=== PATIENT | female | born 1955 | race Two or more races ===

== ENCOUNTER 2024-09-02 01:12 | Emergency (ER) | payer BC, OTHER ==
[~2024-09-02] VITALS: Ht 162.6 cm; Wt 47.8 kg
[2024-09-02 01:56] LABS: Hematocrit 38.8 % (36.0-46.0); Hemoglobin 13.2 g/dL (12.2-16.2); Mean Corpuscular Hemoglobin 31.0 pg (28.0-32.0); Mean Corpuscular Volume 91.1 fL (80.0-100.0)
[2024-09-02] MEDS: ONDANSETRON HCL 4 MG/2 ML VIAL IV ONE (02:01)
[2024-09-02] MEDS: HYDROmorphone HCL 2 MG/ML VL/or syr IV ONE (02:02)
[2024-09-02 02:07] LABS: Alanine Aminotransferase 15 U/L (7-40); Albumin 4.2 g/dL (3.2-4.8); Alkaline Phosphatase 84 U/L (46-116); Anion Gap 9 (5-15); BUN/Creatinine Ratio 17.2 (10.0-20.0); Blood Urea Nitrogen 17 mg/dL (9-23); Calcium 9.7 mg/dL (8.7-10.4); Carbon Dioxide 26 mmol/L (20-31); Chloride 103 mmol/L (98-107); Glucose 102 mg/dL (74-106); Potassium 3.6 mmol/L (3.5-5.1); Sodium 138 mmol/L (136-145); Total Protein 7.7 g/dL (5.7-8.2)
[2024-09-02 02:08] LABS: Bilirubin, Total 0.3 mg/dL (0.2-1.0)
[2024-09-02 02:10] LABS: Lipase 96 U/L (12-53)
[2024-09-02 02:19] LABS: Total Cells Counted 100.0 (100)
--- NOTE | 2024-09-02 02:30 | ED.PDOC ---
GI ASSESSMENT HPI Comments Patient is a pleasant 68-year-old female who was sent to the ED by her primary care provider due to small-bowel obstruction concerns. Patient states she had imaging study done due to what appears to be an intra-abdominal mass. Patient states her provider called her today and said that she had a small bowel ob struction needed to come to the ED for management. Patient arrives in pain, but states that any fever nausea or vomiting. Patient was mildly tachycardic at arrival. Patient states a history of leukemia. Chief Complaint: Abdominal Pain Time Seen by MD: 01:17 Reviewed Notes: Nurses Notes Allergies: Coded Allergies: Penicillins (Verified Allergy, Mild, 09/02/24) severe nausea Information Source: Patient Mode of Arrival: Ambulatory Timing: Days Duration: Since onset Prehospital treatment: None Quality: Cramping Vomitus: None Severity: Moderate Recent: None Recent Hx of: None Past Medical History PAST MEDICAL HISTORY: Denies Past Medical History (Other): Patient states a history of leukemia Surgical History: Denies all surgeries MANAGER CRITICAL CARE History: No Pertinent MANAGER CRITICAL CARE History Family History Family History: Reviewed,noncontributory to illness, No family hx of Cancer, No family hx of DM, No family hx of Heart juan m, No family hx of HTN, No family hx ofKidney juan m, No family hx of Liver juan m, No family hx of Lung juan m, No family hx of Stroke Social History Smoker: Non-Smoker Alcohol: Denies ETOH Use Drugs: Denies Drug Use Lives In: Home Constitutional: denies: chills, diaphoresis, fatigue, fever, malaise, sweats, weakness, others EENTM: denies: blurred vision, double vision, ear bleeding, ear discharge, ear drainage, ear pain, ear ringing, eye pain, eye redness, hearing loss, mouth pain, mouth swelling, nasal discharge, nose bleeding, nose congestion, nose pain, photophobia, tearing, throat pain, throat swelling, voice changes, others Respiratory: denies: cough, hemoptysis, orthopnea, SOB at rest, shortness of breath, SOB with excertion, stridor, wheezing, others Cardiovascular: denies: chest pain, dizzy spells, diaphoresis, Dyspnea on exertion, edema, irregular heart beat, left arm pain, lightheadedness, palpitations, PND, syncope, others Gastrointestinal: reports: abdominal pain; denies: abdomen distended, blood streaked bowels, constipated, diarrhea, dysphagia, difficulty swallowing, he matemesis, melena, nausea, poor appetite, poor fluid intake, rectal bleeding, rectal pain, vomiting, others Genitourinary: denies: abnormal vagina bleeding, burning, dyspareunia, dysuria, flank pain, frequency, hematuria, incontinence, pain, , vagina discharge, urgency, others Neurological: denies: dizziness, fainting, headache, left sided numbness, left sided weakness, numbness, paresthesia, pre-existing deficit, right sided numbness, right sided weakness, seizure, speech problems, tingling, tremors, weakness, others Musculoskeletal: denies: back pain, gout, joint pain, joint swelling, muscle pain, muscle stiffness, neck pain, others Integumetry: denies: bruises, change in color, change in hair/nails, dryness, laceration, lesions, lumps, rash, wounds, others Allergic/Immunocompromised: denies: Difficulty Healing, Frequent Infections, Hives, Itching, others Hematologic/Lymphatic: denies: anemia, blood clots, easy bleeding, easy bruising, swollen glands, others Endocrine: denies: excessive hunger, excessive sweating, excessive thirst, excessive urination, flushing, intolerance to cold, intolerance to heat, unexplained weight gain, unexplained weight loss, others Psychiatric: denies: anxiety, bipolar disorder, depression, hopeless, panic disorder, schizophrenia, sleepless, suicidal, others Physical Exam General Appearance: Moderate Distress (Due to belly pain concerns and anxiety related to abdominal pain.), Normal HEENT: Normal ENT Inspection, Pharynx Normal, TMs Normal Neck: Full Range of Motion, Non-Tender, Normal, Normal Inspection Respiratory: Chest Non-Tender, Lungs Clear, No Accessory Muscle Use, No Resp iratory Distress, Normal Breath Sounds Cardiovascular: No Edema, No JVD, No Murmur, No Gallop, Normal Peripheral Pulses, Regular Rate/Rhythm Breast Exam: Deferred Gastrointestinal: Other (Patient displays a protruding abdominal mass of unknown etiology. Abdomen is mildly to moderately rigid throughout. Patient has a remnant shingles blemish on the left side of her abdomen.) Genitalia: Deferred Pelvic: Deferred Rectal: Deferred Extremities: Normal capillary refill, Non-tender, Other (Patient does display bilateral lower extremity edema.) Neurologic: Alert, No Motor Deficits, Normal Affect, Normal Mood, No Sensory Deficits Cerebellar Function: NOT DONE Reflexes: NOT DONE Skin: Dry, Normal Color, Warm Lymphatic: No Adenopathy Was a procedure done? Was a procedure done?: No GI differential Dx Differential Diagnosis: Bowel Obstruction, Cholangitis, Gastritis/PUD, Gastroenteritis, UTI, Other (Intra-abdominal or neoplasm) X-Ray, Labs, Meds, VS Vital Signs Date Time Temp Pulse Resp B/P (MAP) Pulse Ox O2 Delivery O2 Flow Rate FiO2 09/02/24 02:05 98.3 100 19 129/73 (91) 98.3 09/02/24 02:02 91 19 129/73 09/02/24 01:30 98.6 113 18 112/73 (86) 93 98.6 Lab Test 09/02/24 01:34 Range/Units White Blood Count 14.3 H 4.4-10.8 10^3/uL Red Blood Count 4.26 4.0-5.20 10^6/uL Hemoglobin 13.2 12.2-16.2 g/dL Hematocrit 38.8 36.0-46.0 % Mean Corpuscular Volume 91.1 80.0-100.0 fL Mean Corpuscular Hemoglobin 31.0 28.0-32.0 pg Mean Corpuscular Hemoglobin Concent 34.0 32.0-36.0 g/dL Red Cell Distribution Width 16.0 H 11.8-14.3 % Platelet Count 531 H 140-450 10^3/uL Mean Platelet Volume 7.2 6.9-10.8 fL Neutrophils (%) (Auto) 37.0-80.0 % Lymphocytes (%) (Auto) 10.0-50.0 % Monocytes (%) (Auto) 0.0-12.0 % Basophils (%) (Auto) 0.0-2.0 % Neutrophils # (Auto) 1.6-8.6 10 ^3/uL Lymphocytes # (Auto) 0.4-5.4 10 ^3/uL Monocytes # (Auto) 0-1.3 10 ^3/uL Differential Total Cells Counted 100.0 100 Neutrophils % (Manual) 29 L 37.0-80.0 Band Neutrophils % (Manual) 0 Lymphocytes % (Manual) 52 H 10.0-50.0 Monocytes % (Manual) 7 0-12 Eosinophils % (Manual) 6 0-7 Basophils % (Manual) 0 0.0-2.0 Metamyelocytes % (manual) 0 Myelocytes % (Manual) 0 Promyelocytes % (Manual) 0 Blast Cells % (Manual) 0 Reactive Lymphocytes 6 Platelet Estimate Increased Sodium Level 138 136-145 mmol/L Potassium Level 3.6 3.5-5.1 mmol/L Chloride Level 103 98-107 mmol/L Carbon Dioxide Level 26 20-31 mmol/L Anion Gap 9 5-15 Blood Urea Nitrogen 17 9-23 mg/dL Creatinine 0.99 0.550-1.02 mg/dL Glomerular Filtration Rate Calc 62 >90 mL/min BUN/Creatinine Ratio 17.2 10.0-20.0 Serum Glucose 102 74-106 mg/dL Calcium Level 9.7 8.7-10.4 mg/dL Total Bilirubin 0.3 0.2-1.0 mg/dL Aspartate Amino Transferase (AST) 32 13-40 U/L Alanine Aminotransferase (ALT) 15 7-40 U/L Alkaline Phosphatase 84 46-116 U/L Troponin I High Sensitivity < 3 L </=34 ng/L B-Type Natriuretic Peptide 32.28 0-100 pg/mL Total Protein 7.7 5.7-8.2 g/dL Albumin 4.2 3.2-4.8 g/dL Lipase 96 H 12-53 U/L Current Medications Medications (Trade) Dose Ordered Sig/Deborah Route Start Time Stop Time Status Last Admin Hydromorphone HCl (Dilaudid Injection) 0.5 mg ONCE ONCE IV 09/02/24 01:30 09/02/24 01:31 DC 09/02/24 02:02 Ondansetron HCl (Zofran) 4 mg ONCE ONCE IV 09/02/24 01:30 09/02/24 01:31 DC 09/02/24 02:01 X-Ray, Labs, Meds, VS Comment Serum studies had returned to on this note. Imaging studies were still pending as was urine. Laboratories revealed a mild leukocytosis as well as a elevated lipase indicative of a acute pancreatitis event. Patient will be admitted for those conditions while imaging results are pending and may reveal a small bowel obstruction. Time of 1ST Reevaluation: 02:29 Reevaluation 1ST: Improved Consultation: PCP Patient Education/Counseling: Diagnosis, Treatment Family Education/Counseling: Diagnosis, Treatment SEPSIS Sepsis Screen Date sepsis recognized/suspect: Sep 02, 2024 Time Sepsis recognized/suspect: 013 Recent Procedure: No On Antibiotic Therapy: No Respiratory Rate >20: No Heart Rate >90: Yes Temp<36 C (96.8 F) or >38.3 C: No SBP <90 or MAP <65 mmHG: No New Acute Mental Status Change: No Is the patient on CPAP, BIPAP,: No Physician Orders Heplock Iv (09/02/24 ) Urinalysis (09/02/24 01:29) Troponin-I Hs (09/02/24 02:29) Troponin-I Hs (09/02/24 04:29) Electrocardigram (09/02/24 01:29) Ct Ab Pel With Iv Con Only (09/02/24 01:29) Vital Signs Date Time Temp Pulse Resp B/P (MAP) Pulse Ox O2 Delivery O2 Flow Rate FiO2 09/02/24 02:05 98.3 100 19 129/73 (91) 98.3 09/02/24 02:02 91 19 129/73 09/02/24 01:30 98.6 113 18 112/73 (86) 93 98.6 Laboratory Tests Test 09/02/24 01:34 White Blood Count 14.3 10^3/uL (4.4-10.8) H Medications Medications Dose Ordered Sig/Deborah Route Start Time Stop Time Status Last Admin Dose Admin Hydromorphone HCl 0.5 mg ONCE ONCE IV 09/02/24 01:30 09/02/24 01:31 DC 09/02/24 02:02 Ondansetron HCl 4 mg ONCE ONCE IV 09/02/24 01:30 09/02/24 01:31 DC 09/02/24 02:01 Departure 1 Departure Time of Disposition: 02:29 Impression: Primary Impression: Leukocytosis Additional Impression: Pancreatitis Disposition: 09 ADMITTED INPATIENT Condition: Fair Discharged With: Self Critical Care Note Critical Care Time?: No Stability Stability form required: No Heart Score Heart Score: Heart Score Response (Comments) Value History N/A 0 EKG N/A 0 Age N/A 0 Risk Factors N/A 0 Troponin N/A 0 Total 0 NAVNEET DAVEY PAC Sep 02, 2024 02:30
[2024-09-02] MEDS: IOHEXOL 300 MG/ML 100ML BOTTLE IJ ONE (02:49)
[2024-09-02 03:05] VITALS: O2SAT 93
[2024-09-02 03:14] LABS: Urine Protein, UAD Negative (Negative)
--- NOTE | 2024-09-02 03:52 | DVH ---
Exam: CT CT AB PEL WITH IV CON ONLY History: Large intra-abdominal mass COMPARISON: None Technique: Multidetector spiral CT of the abdomen and pelvis was performed from lung bases to pubic s ymphysis. Intravenous contrast was administered during this examination. Portal venous imaging was o btained. Axial, coronal and sagittal multiplanar reformats were performed by the technologist on a [employer] workstation. Radiation Dose : 1. Abdomen/Pelvis: CTDIvol 6.99 mGy, DLP 362.17 mGy*cm. CONTRAST: Type of contrast: Omniscan 300 Contrast injected: 100 ml Findings: Lung Bases: Grossly stable chronic appearing changes related to centrilobular emphysema with bronchie ctasis and bibasilar scarring and atelectasis. Stable solid nodules within the left lower lobe measur e 9 mm (image 26, series 3) and 8 mm (image 52, series 3). Normal heart size. No pleural or pericard ial effusion. Liver: The liver is normal in size. No focal lesions. Normal hepatic vascular enhancement. Gallbladder and Biliary Tree: Cholelithiasis. Common bile duct measures 6 mm at the level of the panc reatic head and the pancreatic duct measures 4 mm. Spleen: Unremarkable Pancreas: The pancreas is normal in appearance without focal lesions or abnormal enhancement. Adrenal Glands: Unremarkable Kidneys: No hydronephrosis. Bladder: Unremarkable Bowel: The stomach is grossly normal in appearance. Small bowel and colon are normal in caliber and d istribution. The appendix is not visualized; however, no secondary findings of acute appendicitis jannie ntified. Ascites: Absent Lymphadenopathy: Extensive peritoneal, retroperitoneal, mesenteric, iliac and inguinal lymphadenopath y. Abdominal Wall and Mesentery: Unremarkable. Vasculature: The visualized abdominal aorta is normal in size and caliber. Atherosclerotic vascular c alcifications. Abdominal and pelvic vessels demonstrate normal enhancement. Pelvic Organs: Unremarkable Musculoskeletal: No aggressive focal bony lesions, acute fractures or dislocation. Hardware within th e bilateral hip status post arthroplasty with associated beam hardening artifact partially obscuring the findings of the pelvis. IMPRESSION: 1. Extensive peritoneal, retroperitoneal, mesenteric, iliac and inguinal lymphadenopathy. This appea zeferino is concerning for a malignant process such as lymphoma. Biopsy is recommended. 2. Stable appearing left lower lobe solid pulmonary nodules, also concerning for possible metastatic disease. 3. Cholelithiasis and mild common bile and pancreatic ductal dilatation. Radiation optimization: All CT scans at this facility use at least one of these dose optimization hillary hniques: automated exposure control mA and/or kV adjustment per patient size (includes targeted exam s where dose is matched to clinical indication) or iterative reconstruction.
--- NOTE | 2024-09-02 05:03 | DVHINCON2 ---
ROXIE FRENCH SOUND EFFECTS SUPERVISOR 09/02/24 0503: Date of service: Sep 02, [address] Mcbride Reason for Consultation Medical management History of Present Illness 60-year-old female with past medical history of leukemia being followed by Oncology on outpatient basis presents after being sent in by her PCP with concerns of small-bowel obstruction. Patient is able to tolerate eating. Is not experiencing nausea or vomiting. Last bowel movement was yesterday after taking laxatives. During the emergency department evaluation W 14.3, H&H 13 0.2/30.8, PLT 531. CMP Na 138, K3.6, BUN 17, creatinine 0.99, GFR 62 total bilirubin 0.3, AST 32, ALT 15 with mild elevation of lipase at 96. Troponins 3/3. UA was positive for leukocyte esterase 3+. CT of the abdomen and pelvis with contrast impression read extensive peritoneal, retroperitoneal, mesenteric, iliac and inguinal lymphadenopathy. This appearance is concerning for malignant process such as lymphoma biopsy is recommended. Stable appearing left lower lobe pulmonary nodules concerning for possible metastatic disease. Cholelithiasis and mild common bile duct dilation 6 mm. This time there are no complaints of fevers, chills, shortness of breath, chest pain, palpitations, dizziness, nausea, vomiting, diarrhea, hematemesis, hematochezia, melena. Past Medical History Leukemia Allergies: Coded Allergies: Penicillins (Verified Allergy, Mild, 09/02/24) severe nausea Home Meds Active Scripts Cephalexin Monohydrate (Cephalexin) 500 Mg Cap, 500 MG PO QID for 7 Days, #30 CAP Prov:ROXIE FRENCH SOUND EFFECTS SUPERVISOR 09/02/24 Discontinued Scripts Cephalexin (KEFLEX CAPSULE) 250 Mg Cp, 500 MG PO Q6HR for 7 Days, #30 CAP Prov:ROXIE FRENCH SOUND EFFECTS SUPERVISOR 09/02/24 Review of Systems 10 systems reviewed and negative except as per HPI. Vital Signs Vital Signs Date Time Temp Pulse Resp B/P (MAP) Pulse Ox O2 Delivery O2 Flow Rate FiO2 09/02/24 03:05 97.4 80 14 96/55 (69) 93 97.4 09/02/24 03:05 Nasal Cannula* 2 28 Physical Exam GENERAL: Patient appearing stated age, in no acute distress. Ill appearing. Thin. malnourished. HEENT: Pupils equal and reactive to light and accommodation. Extraocular muscles intact. Mucous membranes moist. Conjunctivae pink. Anicteric sclerae. LUNGS: Bilateral air entry. No wheezes, rhonchi or rales. HEART: Regular rate and rhythm. Normal S1 and S2. ABDOMEN: BS normoactive, soft, nontender, and nondistended. No CVA tenderness. Abdomen round. EXTREMITIES: No clubbing, cyanosis, edema. No calf tenderness. Pedal pulses 2+. NEUROLOGICAL: The patient is alert and oriented times 3. CN II-XII intact. No focal deficits on gross sensory or motor examination. Labs/Diagnostic Data Labs Test 09/02/24 04:45 09/02/24 01:40 09/02/24 01:34 Range/Units Urine Color Yellow Yellow Urine Clarity Clear Clear Urine pH 6.0 5.0-9.0 Urine Specific [place] 1.011 1.001-1.035 Urine Protein Negative Negative Urine Ketones Negative Negative Urine Blood Negative Negative /uL Urine Nitrite Negative Negative Urine Bilirubin Negative Negative Urine Urobilinogen Normal Negative mg/dL Urine Leukocyte Esterase 3+ Negative /uL Urine RBC 4 0 - 4 /hpf Urine Microscopic WBC 59 H 0-5 /HPF Urine Squamous Epithelial Cells Few <5 /hpf Urine Bacteria None seen None Seen /hpf Urine Hyaline Casts Few 0 - 2 /lpf Urine Glucose Normal Normal mg/dL White Blood Count 14.3 H 4.4-10.8 10^3/uL Red Blood Count 4.26 4.0-5.20 10^6/uL Hemoglobin 13.2 12.2-16.2 g/dL Hematocrit 38.8 36.0-46.0 % Mean Corpuscular Volume 91.1 80.0-100.0 fL Mean Corpuscular Hemoglobin 31.0 28.0-32.0 pg Mean Corpuscular Hemoglobin Concent 34.0 32.0-36.0 g/dL Red Cell Distribution Width 16.0 H 11.8-14.3 % Platelet Count 531 H 140-450 10^3/uL Mean Platelet Volume 7.2 6.9-10.8 fL Neutrophils (%) (Auto) 37.0-80.0 % Lymphocytes (%) (Auto) 10.0-50.0 % Monocytes (%) (Auto) 0.0-12.0 % Basophils (%) (Auto) 0.0-2.0 % Neutrophils # (Auto) 1.6-8.6 10 ^3/uL Lymphocytes # (Auto) 0.4-5.4 10 ^3/uL Monocytes # (Auto) 0-1.3 10 ^3/uL Differential Total Cells Counted 100.0 100 Neutrophils % (Manual) 29 L 37.0-80.0 Band Neutrophils % (Manual) 0 Lymphocytes % (Manual) 52 H 10.0-50.0 Monocytes % (Manual) 7 0-12 Eosinophils % (Manual) 6 0-7 Basophils % (Manual) 0 0.0-2.0 Metamyelocytes % (manual) 0 Myelocytes % (Manual) 0 Promyelocytes % (Manual) 0 Blast Cells % (Manual) 0 Reactive Lymphocytes 6 Platelet Estimate Increased Sodium Level 138 136-145 mmol/L Potassium Level 3.6 3.5-5.1 mmol/L Chloride Level 103 98-107 mmol/L Carbon Dioxide Level 26 20-31 mmol/L Anion Gap 9 5-15 Blood Urea Nitrogen 17 9-23 mg/dL Creatinine 0.99 0.550-1.02 mg/dL Glomerular Filtration Rate Calc 62 >90 mL/min BUN/Creatinine Ratio 17.2 10.0-20.0 Serum Glucose 102 74-106 mg/dL Calcium Level 9.7 8.7-10.4 mg/dL Total Bilirubin 0.3 0.2-1.0 mg/dL Aspartate Amino Transferase (AST) 32 13-40 U/L Alanine Aminotransferase (ALT) 15 7-40 U/L Alkaline Phosphatase 84 46-116 U/L B-Type Natriuretic Peptide 32.28 0-100 pg/mL Total Protein 7.7 5.7-8.2 g/dL Albumin 4.2 3.2-4.8 g/dL Lipase 96 H 12-53 U/L Assessment Abdominal lymphadenopathy suggestive of lymphoma UTI Patient was seen and evaluated ER bed 1. Patient's chart was reviewed in its entirety including lab work, imaging, vital signs, physical assessment. Initial lab work demonstrated W14.3, H&H 13.2/38.8, PLT 531. CMP was unremarkable except for mildly elevated lipase and 96. UA was positive for leukocyte esterase. The impression of the CT of the abdomen and pelvis with contrast demonstrated extensive peritoneal retroperitoneal, mesenteric, iliac and inguinal lymphadenopathy. This appearance is concerning for malignant process such as lymphoma. Stable appearing left lower lobe pulmonary nodules also concerning for possible metastatic disease. Cholelithiasis and mild common bile duct dilation. Patient is hemodynamically stable afebrile 97.4, BP 117/57, HR 80, RR 14, oxygen saturation 93% Plan/Recommendation At this time patient is not experiencing abdominal pain, nausea or vomiting. She is currently eating a sandwich in her ER gurney. Thus tolerating oral in take. After reviewing the CT of the abdomen and pelvis with contrast there was no abnormal findings indicating small bowel obstruction or inflammatory changes involving the pancreas. Patient is already being followed up by Oncology on an outpatient basis. As such we will discharge the patient home and have her follow up with her oncologist on an outpatient basis. I have sent a prescription for antibiotics to the patients pharmacy to cover the patient's UTI. O skilled nursing case manager Shanelle has been consulted to establish stat follow up visit with her oncologist. We will also follow up with a home safety evaluation. We will also schedule follow up appointment at [facility] to follow up on the UTI. Plan of care was discussed in detail with the patient was in agreement and states that she understands. The patient was provided with strict ER precautions including but not limited to dizziness, syncope, shortness of breath, chest pain, palpitations, severe abdominal pain, nausea, vomiting, hematemesis, hematochezia, melena. If any of these occur the patient has been advised to return to the nearest emergency department for further evaluation and treatment. Plan discussed with: Patient SUPRIYA PADILLA MD 09/02/24 1420: Allergies: Coded Allergies: Penicillins (Verified Allergy, Mild, 09/02/24) severe nausea Home Meds Active Scripts Cephalexin Monohydrate (Cephalexin) 500 Mg Cap, 500 MG PO QID for 7 Days, #30 CAP Prov:ROXIE FRENCH NP 09/02/24 Discontinued Scripts Cephalexin (KEFLEX CAPSULE) 250 Mg Cp, 500 MG PO Q6HR for 7 Days, #30 CAP Prov:ROXIE FRENCH NP 09/02/24 Additional Comments Additional Comments Additional Comments Patient's chart is reviewed and discussed with the nurse practitioner. Patient seen evaluated by a nurse practitioner. I agree with his evaluation, documentation, assessment and care plan as outlined. ROXIE FRENCH NP Sep 02, 2024 05:03 SUPRIYA PADILLA MD Sep 02, 2024 14:20
[2024-09-02 05:05] VITALS: BP 117/57; PULSE 78; RESP 16; TEMP 97.6; O2SAT 93
[2024-09-02] MEDS ORDERED: CEPH250C PO (05:44)
[2024-09-02] MEDS ORDERED: CEPH500C PO (05:46)
== END 2024-09-02 06:25 | disposition home or self-care (01) ==
LOC: ER 01:12
DX: D72.829 Elevated white blood cell count, unspecified (principal); K85.90 Acute pancreatitis without necrosis or infection, unspecified; R06.02 Shortness of breath; Z88.0 Allergy status to penicillin; Z85.6 Personal history of leukemia
CPT/HCPCS: 36415; 74177; 80053; 81001; 83690; 83880; 84484; 85007; 85027; 96374; 96375; 99285; J1171; J2405; Q9967

== ENCOUNTER 2024-10-13 16:10 | Inpatient (IN) | payer BC, MEDICAID ==
[~2024-10-13] VITALS: Ht 162.6 cm; Wt 50.9 kg
[~2024-10-13 16:10] MED LIST: CEPH500C PO
[2024-10-13 16:25] VITALS: PULSE 73; RESP 15; O2SAT 92
[2024-10-13 17:00] LABS: Hematocrit 35.6 % (36.0-46.0); Hemoglobin 11.5 g/dL (12.2-16.2); Mean Corpuscular Hemoglobin 30.0 pg (28.0-32.0); Mean Corpuscular Volume 92.9 fL (80.0-100.0); Nucleated Red Blood Cells % 0.1 %
[2024-10-13 17:12] LABS: Potassium 4.2 mmol/L (3.5-5.1); Sodium 140 mmol/L (136-145)
[2024-10-13 17:13] LABS: Anion Gap 5 (5-15); Calcium 9.2 mg/dL (8.7-10.4); Carbon Dioxide 25 mmol/L (20-31)
[2024-10-13 17:14] LABS: Chloride 110 mmol/L (98-107)
[2024-10-13 17:18] LABS: BUN/Creatinine Ratio 23.6 (10.0-20.0); Blood Urea Nitrogen 21 mg/dL (9-23); Glucose 84 mg/dL (74-106)
[2024-10-13] MEDS: SODIUM CHLORIDE 0.9% 1,000 ML IV ONE (17:25)
--- NOTE | 2024-10-13 17:34 | DVH ---
CHEST RADIOGRAPH Indication: syncope Technique: Single frontal view of the chest was obtained Comparison: XR CHEST 1 VIEW on DOS: 09/04/24, XR CHEST 1 VIEW on DOS: 06/03/23 FINDINGS: Lines and Tubes: None Lungs: No focal consolidation. Diffuse interstitial prominence. Pleura: No effusion. No pneumothorax. Cardiomediastinal contours: Mild cardiomegaly Bones: No acute osseous abnormality. Severe degenerative changes of the right glenohumeral joint. Lef t shoulder reverse arthroplasty. IMPRESSION: Mild pulmonary vascular congestion / interstitial pneumonitis with underlying fibrotic changes not ex cluded.
--- NOTE | 2024-10-13 17:41 | DVH ---
Exam: CT HEAD WITHOUT CONTRAST History: syncope Technique: [address] images through the posterior fossa and the supratentorial compart ment were acquired without contrast and imaged using soft tissue and bone algorithms. RADIATION DOSE: DLP 946.44 mGy.cm; CTDI vol 52.7 mGy. Comparison: CT HEAD WO on DOS: 10/04/24, CT HEAD WO on DOS: 06/03/23 Findings: There is no evidence of an intracranial hemorrhage, acute large vessel infarct, mass effect, or midli ne shift. There is no significant cerebral atrophy. Scattered small hypodensities in bilateral parietal lobes, nonspecific. No significant calcification of the carotid siphons. The calvarium, orbits, paranasal sinuses, sella, middle ears, and mastoids are unremarkable. The superficial soft tissues are within normal limits. Impression: 1. No acute intracranial abnormality. 2. Scattered small hypodensities in bilateral parietal lobes, nonspecific. May reflect chronic small- vessel ischemic disease versus lacunar infarcts. Correlate with MRI as clinically indicated.
--- NOTE | 2024-10-13 17:45 | ED.PDOC ---
HPI Comments This is a 68 year old female SUZAN presenting to the ED with chief complaint of syncope. 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 EMS relays that the patient then had another en route to the ED and then while being examined in the ED, she had a third one. Patient denies any chest pain, SOB, dizziness, or N/V Chief Complaint: Syncope Time Seen by MD: 17:00 Reviewed Notes: Nurses Notes, Chemists Notes, Medications, Allergies Allergies: Coded Allergies: Penicillins (Verified Allergy, Mild, 09/02/24) severe nausea Home Meds Active Scripts Cephalexin Monohydrate (Cephalexin) 500 Mg Cap, 500 MG PO QID for 7 Days, #30 CAP Prov:ROXIE FRENCH NP 09/02/24 Information Source: Patient, Emergency Med Personnel Mode of Arrival: EMS Severity: Moderate Timing: Hours Duration: Since onset Prehospital treatment: None Associated Signs and Symptoms: Syncope Past Medical History PAST MEDICAL HISTORY: Denies Surgical History: Denies all surgeries 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 History Family History Family History: Reviewed,noncontributory to illness, No family hx of Cancer, No family hx of DM, No family hx of Heart juan m, No family hx of HTN, No family hx ofKidney juan m, No family hx of Liver juan m, No family hx of Lung juan m, No family hx of Stroke Social History Smoker: Non-Smoker Alcohol: Denies ETOH Use Drugs: Denies Drug Use Lives In: Home Constitutional: denies: chills, diaphoresis, fatigue, fever, malaise, sweats, weakness, others EENTM: denies: blurred vision, double vision, ear bleeding, ear discharge, ear drainage, ear pain, ear ringing, eye pain, eye redness, hearing loss, mouth pain, mouth swelling, nasal discharge, nose bleeding, nose congestion, nose pain, photophobia, tearing, throat pain, throat swelling, voice changes, others Respiratory: denies: cough, hemoptysis, orthopnea, SOB at rest, shortness of breath, SOB with excertion, stridor, wheezing, others Cardiovascular: reports: syncope; denies: chest pain, dizzy spells, diaphoresis, Dyspnea on exertion, edema, irregular heart beat, left arm pain, lightheadedness, palpitations, PND, others Gastrointestinal: denies: abdomen distended, abdominal pain, blood streaked bowels, constipated, diarrhea, dysphagia, difficulty swallowing, hematemesis, melena, nausea, poor appetite, poor fluid intake, rectal bleeding, rectal pain, vomiting, others Genitourinary: denies: abnormal vagina bleeding, burning, dyspareunia, dysuria, flank pain, frequency, hematuria, incontinence, pain, , vagina discharge, urgency, others Neurological: denies: dizziness, fainting, headache, left sided numbness, left sided weakness, numbness, paresthesia, pre-existing deficit, right sided numbness, right sided weakness, seizure, speech problems, tingling, tremors, weakness, others Musculoskeletal: denies: back pain, gout, joint pain, joint swelling, muscle pain, muscle stiffness, neck pain, others Integumetry: denies: bruises, change in color, change in hair/nails, dryness, laceration, lesions, lumps, rash, wounds, others Allergic/Immunocompromised: denies: Difficulty Healing, Frequent Infections, Hives, Itching, others Hematologic/Lymphatic: denies: anemia, blood clots, easy bleeding, easy bruising, swollen glands, others Endocrine: denies: excessive hunger, excessive sweating, excessive thirst, excessive urination, flushing, intolerance to cold, intolerance to heat, unexplained weight gain, unexplained weight loss, others Psychiatric: denies: anxiety, bipolar disorder, depression, hopeless, panic disorder, schizophrenia, sleepless, suicidal, others All Other Systems: Reviewed and Negative Physical Exam General Appearance: No Apparent Distress, Normal HEENT: Normal ENT Inspection, Pharynx Normal, TMs Normal Neck: Full Range of Motion, Non-Tender, Normal, Normal Inspection Respiratory: Chest Non-Tender, Lungs Clear, No Accessory Muscle Use, No Respiratory Distress, Normal Breath Sounds Cardiovascular: No Edema, No JVD, No Murmur, No Gallop, Normal Peripheral Pulses, Regular Rate/Rhythm Breast Exam: Deferred Gastrointestinal: No Organomegaly, Non Tender, No Pulsatile Mass, Normal Bowel Sounds, Soft Genitalia: Deferred Pelvic: Deferred Rectal: Deferred Extremities: No calf tenderness, Normal capillary refill, Normal inspection, Normal range of motion, Non-tender, No pedal edema Musculoskeletal : Apperance: Normal Neurologic: Alert, dinkey driver II-XII nml as Tested, No Motor Deficits, Normal Affect, Normal Mood, No Sensory Deficits Cerebellar Function: Normal Reflexes: Normal Skin: Dry, Normal Color, Warm Lymphatic: No Adenopathy Was a procedure done? Was a procedure done?: No CP Differential Dx Differential Diagnosis: MAT, CT, PAC's Differential Diagnosis: HTN Essential, HTN Accelerated, HTN Encephalopathy Differential Diagnosis: Chest Wall Pain, Cholelithiasis, Gastritis, Myocardial Infarction, Pericarditis X-Ray, Labs, Meds, VS Vital Signs Date Time Temp Pulse Resp B/P (MAP) Pulse Ox O2 Delivery O2 Flow Rate FiO2 10/13/24 18:00 70 14 112/64 (80) 98 10/13/24 17:53 84 10/13/24 16:25 73 15 115/68 (84) 92 10/13/24 16:25 73 15 92 Room Air* 0 21 10/13/24 16:20 97.3 92 18 110/67 96 97.3 10/13/24 16:10 85 Lab Test 10/13/24 18:07 10/13/24 16:50 Range/Units Troponin I High Sensitivity < 3 L < 3 L </=34 ng/L White Blood Count 14.4 H 4.4-10.8 10^3/uL Red Blood Count 3.83 L 4.0-5.20 10^6/uL Hemoglobin 11.5 L 12.2-16.2 g/dL Hematocrit 35.6 L 36.0-46.0 % Mean Corpuscular Volume 92.9 80.0-100.0 fL Mean Corpuscular Hemoglobin 30.0 28.0-32.0 pg Mean Corpuscular Hemoglobin Concent 32.3 32.0-36.0 g/dL Red Cell Distribution Width 16.1 H 11.8-14.3 % Platelet Count 681 H 140-450 10^3/uL Mean Platelet Volume 6.7 L 6.9-10.8 fL Neutrophils (%) (Auto) 32.6 L 37.0-80.0 % Lymphocytes (%) (Auto) 54.7 H 10.0-50.0 % Monocytes (%) (Auto) 10.2 0.0-12.0 % Eosinophils (%) (Auto) 2.0 0.0-7.0 % Basophils (%) (Auto) 0.5 0.0-2.0 % Neutrophils # (Auto) 4.7 1.6-8.6 10 ^3/uL Lymphocytes # (Auto) 7.9 H 0.4-5.4 10 ^3/uL Monocytes # (Auto) 1.5 H 0-1.3 10 ^3/uL Eosinophils # (Auto) 0.3 0-0.8 10 ^3/uL Basophils # (Auto) 0.1 0-0.2 10 ^3/uL Nucleated Red Blood Cells 0.1 % Sodium Level 140 136-145 mmol/L Potassium Level 4.2 3.5-5.1 mmol/L Chloride Level 110 H 98-107 mmol/L Carbon Dioxide Level 25 20-31 mmol/L Anion Gap 5 5-15 Blood Urea Nitrogen 21 9-23 mg/dL Creatinine 0.89 0.550-1.02 mg/dL Glomerular Filtration Rate Calc 71 >90 mL/min BUN/Creatinine Ratio 23.6 H 10.0-20.0 Serum Glucose 84 74-106 mg/dL Calcium Level 9.2 8.7-10.4 mg/dL Current Medications Medications (Trade) Dose Ordered Sig/Edborah Route Start Time Stop Time Status Last Admin Sodium Chloride 1,000 ml @ 1,000 mls/hr Q1H ONCE IV 10/13/24 16:45 10/13/24 17:44 DC 10/13/24 17:25 Time of 1ST Reevaluation: 18:00 Reevaluation 1ST: Unchanged Patient Education/Counseling: Diagnosis, Treatment Family Education/Counseling: No Family Present SEPSIS Sepsis Screen Physician Orders Urinalysis (10/13/24 16:36) Chest Portable (10/13/24 16:36) Electrocardigram (10/13/24 16:36) Head Without Contrast (10/13/24 16:36) Troponin-I Hs (10/13/24 19:36) Electrocardigram (10/13/24 17:36) Electrocardigram (10/13/24 19:36) 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 ) Vital Signs Date Time Temp Pulse Resp B/P (MAP) Pulse Ox O2 Delivery O2 Flow Rate FiO2 10/13/24 18:00 70 14 112/64 (80) 98 10/13/24 17:53 84 10/13/24 16:25 73 15 115/68 (84) 92 10/13/24 16:25 73 15 92 Room Air* 0 21 10/13/24 16:20 97.3 92 18 110/67 96 97.3 10/13/24 16:10 85 Laboratory Tests Test 10/13/24 16:50 White Blood Count 14.4 10^3/uL (4.4-10.8) H Medications Medications Dose Ordered Sig/Deborah Route Start Time Stop Time Status Last Admin Dose Admin Sodium Chloride 1,000 ml @ 1,000 mls/hr Q1H ONCE IV 10/13/24 16:45 10/13/24 17:44 DC 10/13/24 17:25 Departure 1 Departure Time of Disposition: 18:10 (Patient presented with syncope today and should be admitted. Data: 1. I ordered and reviewed the result of at least 3 labs including a CBC, BMP, and troponin. 2. I independently interpreted the following tests: EKG which shows a sinus arrhythmia and a chest x-ray which shows chest and a CT head which shows multiple lacunar infarcts.Risk:This patient has a high risk of morbidity due to further diagnostic testing or treatment and may suffer from an acute cardiac, neurologic, or infectious disorder. Rationale: Patient should be admitted to the hospital for further management.) Impression: Primary Impression: Syncope and collapse Additional Impression: Acute metabolic encephalopathy Disposition: ADMITTED INPATIENT Admit to: Tele Condition: Serious Critical Care Note Critical Care Time?: Yes Critical care comment: Syncope and collapse Authorized and Performed by: Gentry Merlos MD Total critical care time: Approximately 39 minutes Due to a high probability of clinically significant, life threatening deterioration, the patient required my highest level of preparedness to intervene emergently and I personally spent this critical care time directly and personally managing the patient. This critical care time included obtaining a history; examining the patient; pulse oximetry; ordering and review of studies; arranging urgent treatment with development of a management plan; evaluation of patient's response to treatment; frequent reassessment; and, discussions with other providers. This critical care time was performed to assess and manage the high probability of imminent, life-threatening deterioration that could result in multi-organ failure. It was exclusive of separately billable procedures and treating other patients and teaching time. Please see my other sections and the rest of the note for further information on patient assessment and treatment. Stability Stability form required: No Heart Score Heart Score: Heart Score Response (Comments) Value History Highly Suspicious 2 EKG Normal 0 Age >65 2 Risk Factors 1 or 2 risk factors 1 Troponin 1-2 x's Normal limit 1 Total 6 I personally scribed for GENTRY MERLOS MD ([email or web address]) on 10/13/24 at 17:45. Electronically submitted by Patel Rico ([email or web address]). GENTRY MERLOS MD Oct 13, 2024 17:45
--- NOTE | 2024-10-13 18:49 | ECG ---
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
[2024-10-13] MEDS ORDERED: ONDANSETRON HCL 4 MG/2 ML VIAL IV PRN (22:45)
[2024-10-13] MEDS ORDERED: DOCUSATE SOD 100 MG CAP PO PRN (22:45)
[2024-10-13] MEDS: SODIUM CHLORIDE 0.9% 1,000 ML IV SCH (23:01)
[2024-10-13] MEDS: SODIUM CHLORIDE 0.9% 500 ML IV ONE (23:45)
[2024-10-14] VITALS (11 sets, daily range): BP systolic 94–109; BP diastolic 55–76; PULSE 58–79; RESP 16–20; TEMP 97.8–98.3; O2SAT 90–99
[2024-10-14 00:13] LABS: Alanine Aminotransferase 19 U/L (7-40); Albumin 3.5 g/dL (3.2-4.8); Alkaline Phosphatase 90 U/L (46-116); Bilirubin, Direct < 0.1 mg/dL (<0.3); Magnesium 2.2 mg/dL (1.6-2.6); Total Protein 6.8 g/dL (5.7-8.2)
[2024-10-14 00:14] LABS: Bilirubin, Total 0.3 mg/dL (0.2-1.0)
[2024-10-14 01:00] LABS: INR 1.04 (0.9-1.15); Prothrombin Time 11.0 sec (9.3-11.8)
[2024-10-14] MEDS: MORPHINE SULFATE INJ 2 MG/ml SYRG IV PRN (01:22)
[2024-10-14] MEDS ORDERED: HYDR-4798 PO (01:33)
[2024-10-14] MEDS ORDERED: BACL10TA PO (01:33)
[2024-10-14] MEDS ORDERED: GABA300T4 PO (01:33)
[2024-10-14 03:41] LABS: COVID19 ANTIGEN SOFIA FIA NEGATIVE (NEGATIVE)
--- NOTE | 2024-10-14 04:22 | DVHHPRES ---
History of Present Illness Resident Creating Document: REGAN OLIVA RESIDENT History of Present Illness Mila Quiroz is a 62-year-old female presented to the emergency department with chief complaint of syncope. Patient And is a poor historian, and appeared drowsy. Patient reports that she fell from a ladder after feeling dizzy. Patient denies any chest pain, shortness of breath, nausea, vomiting, palpitations during the episode. She did not lose consciousness beta trauma to the head. CT scan showed Scattered small hypodensities in bilateral parietal lobes, nonspecific. May reflect chronic small-vessel ischemic disease versus lacunar infarcts. Patient is admitted for further evaluation and management. Surgical history: Denies Family history: Noncontributory Personal history: Denies smoking, drinking, drug use Lives with: Family PCP: Dr. Valentin Review of Systems Constitutional: No: Fever, Chills, Sweats, Weakness, Malaise, Other Eyes: No: Pain, Vision change, Conjunctivae inflammation, Eyelid inflammation, Other, Redness ENT: No: Ear pain, Ear discharge, Nose pain, Nose discharge, Nose congestion, Mouth pain, Mouth swelling, Throat pain, Throat swelling, Other Respiratory: No: Cough, Dry, Shortness of breath, SOB with excertion, Wheezing, Hemoptysis, Pleuritic Pain, Sputum, Wheezing, Other Cardiovascular: No: Chest Pain, Palpitations, Orthopnea, Paroxysmal Noc. Dyspnea, Edema, Lt Headedness, Other Gastrointestinal: No: Nausea, Vomiting, Abdominal Pain, Diarrhea, Constipation, Melena, Hematochezia, Other Genitourinary: No Dysuria, No Frequency, No Incontinence, No Hematuria, No Retention, No Other Musculoskeletal: No: other, neck pain, shoulder pain, arm pain, back pain, hand pain, leg pain, foot pain Skin: No: Rash, Lesions, Jaundice, Bruising, Other Neurological: No: Weakness, Numbness, Incoordination, Change in speech, Confusion, Seizures, Other Allergies: Coded Allergies: Penicillins (Verified Allergy, Mild, 09/02/24) severe nausea Medications Current Medications Medications Dose Ordered Sig/Deborah Route Start Time Stop Time Status Last Admin Dose Admin Sodium Chloride 1,000 ml @ 60 mls/hr [id number] IV 10/13/24 22:45 10/13/24 23:01 60 MLS/HR Ondansetron HCl 4 mg Q4HP PRN IV 10/13/24 22:45 Docusate Sodium 100 mg BIDPRN PRN PO 10/13/24 22:45 Morphine Sulfate 2 mg Q4HPRN PRN IV 10/13/24 22:45 10/14/24 01:22 2 MG Exam Vital Signs Vital Signs Date Time Temp Pulse Resp B/P (MAP) Pulse Ox O2 Delivery O2 Flow Rate FiO2 10/14/24 01:52 60 16 102/66 10/14/24 01:01 98.0 97 98.0 10/14/24 00:08 Nasal Cannula* 5 40 Exam General: Patient alert and oriented in person, place and time. Patient following commands. In moderate distress HEENT: Normocephalic, atraumatic, moist mucous membranes Respiratory/pulmonary: Clear lungs bilaterally, vesicular murmurs present in almost all lung kern, no associated crackles or wheezes. Cardiovascular: Normal heart sounds S1 and S2 with no associated murmurs Abdomen: Abdomen nondistended, there is no pain to palpation in any of the abdominal quadrants, no palpable masses. Extremities: There is no peripheral edema present at the lower extremities. Peripheral Pulses: 3+ Radial (R). 3+ Radial (L). 3+ Dorsalis pedis (R). 3+ Dorsalis pedis(L) Skin: No rashes or pruritus, there is no sacral edema present at this time. Neurological: Intact cranial nerves with no focal neurologic deficits, headache, Labs/Xrays Labs Test 10/14/24 00:46 10/13/24 23:52 10/13/24 18:07 10/13/24 16:50 Range/Units Influenza Type A Antigen Negative Negative Influenza Type B Antigen Negative Negative SARS-CoV-2 Antigen (Rapid) Negative NEGATIVE Prothrombin Time 11.0 9.3-11.8 sec Prothrombin Time INR 1.04 0.9-1.15 Lactic Acid Level 0.7 0.4-2.0 mmol/L Phosphorus Level 3.7 2.4-5.1 mg/dL Magnesium Level 2.2 1.6-2.6 mg/dL Total Bilirubin 0.3 0.2-1.0 mg/dL Direct Bilirubin < 0.1 <0.3 mg/dL Aspartate Amino Transferase (AST) 28 13-40 U/L Alanine Aminotransferase (ALT) 19 7-40 U/L Alkaline Phosphatase 90 46-116 U/L Troponin I High Sensitivity < 3 L </=34 ng/L Total Protein 6.8 5.7-8.2 g/dL Albumin 3.5 3.2-4.8 g/dL White Blood Count 14.4 H 4.4-10.8 10^3/uL Red Blood Count 3.83 L 4.0-5.20 10^6/uL Hemoglobin 11.5 L 12.2-16.2 g/dL Hematocrit 35.6 L 36.0-46.0 % Mean Corpuscular Volume 92.9 80.0-100.0 fL Mean Corpuscular Hemoglobin 30.0 28.0-32.0 pg Mean Corpuscular Hemoglobin Concent 32.3 32.0-36.0 g/dL Red Cell Distribution Width 16.1 H 11.8-14.3 % Platelet Count 681 H 140-450 10^3/uL Mean Platelet Volume 6.7 L 6.9-10.8 fL Neutrophils (%) (Auto) 32.6 L 37.0-80.0 % Lymphocytes (%) (Auto) 54.7 H 10.0-50.0 % Monocytes (%) (Auto) 10.2 0.0-12.0 % Eosinophils (%) (Auto) 2.0 0.0-7.0 % Basophils (%) (Auto) 0.5 0.0-2.0 % Neutrophils # (Auto) 4.7 1.6-8.6 10 ^3/uL Lymphocytes # (Auto) 7.9 H 0.4-5.4 10 ^3/uL Monocytes # (Auto) 1.5 H 0-1.3 10 ^3/uL Eosinophils # (Auto) 0.3 0-0.8 10 ^3/uL Basophils # (Auto) 0.1 0-0.2 10 ^3/uL Nucleated Red Blood Cells 0.1 % Sodium Level 140 136-145 mmol/L Potassium Level 4.2 3.5-5.1 mmol/L Chloride Level 110 H 98-107 mmol/L Carbon Dioxide Level 25 20-31 mmol/L Anion Gap 5 5-15 Blood Urea Nitrogen 21 9-23 mg/dL Creatinine 0.89 0.550-1.02 mg/dL Glomerular Filtration Rate Calc 71 >90 mL/min BUN/Creatinine Ratio 23.6 H 10.0-20.0 Serum Glucose 84 74-106 mg/dL Calcium Level 9.2 8.7-10.4 mg/dL B-Type Natriuretic Peptide 26.70 0-100 pg/mL Thyroid Stimulating Hormone (TSH) 0.67 0.55-4.78 uIU/mL SEPSIS Sepsis Screen Date sepsis recognized/suspect: Oct 13, 2024 Time Sepsis recognized/suspect: 2050 Recent Procedure: No On Antibiotic Therapy: No Respiratory Rate >20: No Heart Rate >90: No Temp<36 C (96.8 F) or >38.3 C: No SBP <90 or MAP <65 mmHG: No New Acute Mental Status Change: No Is the patient on CPAP, BIPAP,: No Physician Orders Admit (10/13/24 22:43) Allergies (10/13/24 22:43) Code Status (10/13/24 22:43) Sodium Chloride 0.9% (10/13/24 22:45) Ondansetron Hcl (Zofran) (10/13/24 22:45) Docusate Sodium Capsule (Colace Capsule) (10/13/24 22:45) Fall Risk Precautions In Place QSHIFT (10/13/24 22:43) Complete Blood Count (10/14/24 04:00) Comprehensive Metabolic Panel (10/14/24 04:00) Cardiac Diet-2gna,Lofat,Lochol (10/14/24 Breakfast) Condition: Serious (10/13/24 22:43) Morphine Sulfate Injection (10/13/24 22:45) Orthostatic Vital Signs (10/13/24 ) Drug Screen (10/14/24 00:57) Urinalysis (10/14/24 00:57) Vitamin B12 (10/14/24 00:57) Vital Signs Date Time Temp Pulse Resp B/P (MAP) Pulse Ox O2 Delivery O2 Flow Rate FiO2 10/14/24 01:52 60 16 102/66 10/14/24 01:22 73 16 104/61 10/14/24 01:01 98.0 73 18 104/61 (75) 97 98.0 96/76 (83) 103/63 (76) 10/14/24 00:08 73 16 97 Nasal Cannula* 5 40 10/14/24 00:08 98.0 73 18 104/61 (75) 97 98.0 10/13/24 23:15 71 15 105/62 (76) 95 10/13/24 21:15 73 15 106/70 (82) 95 Laboratory Tests Test 10/13/24 16:50 10/13/24 23:52 White Blood Count 14.4 10^3/uL (4.4-10.8) H Lactic Acid Level 0.7 mmol/L (0.4-2.0) Medications Medications Dose Ordered Sig/Deborah Route Start Time Stop Time Status Last Admin Dose Admin Morphine Sulfate 2 mg Q4HPRN PRN IV 10/13/24 22:45 10/14/24 01:22 2 MG Sodium Chloride 1,000 ml @ 60 mls/hr [id number] IV 10/13/24 22:45 10/13/24 23:01 60 MLS/HR Sodium Chloride 1,000 ml @ 1,000 mls/hr Q1H ONCE IV 10/13/24 16:45 10/13/24 17:44 DC 10/13/24 17:25 1,000 MLS/HR Assessment/Plan Assessment/Plan #? Mechanical fall, ruled out cranial fracture: # rule out intracranial hemorrhage/stroke # metabolic vs toxic encephalopathy #Small vessel ischemic vascular changes - CT showed No acute intracranial abnormality. Scattered small hypodensities in bilateral parietal lobes, nonspecific. May reflect chronic small-vessel ischemic disease versus lacunar infarcts - carotid duplex ordered, pending - swallow request placed - physical therapy consulted - fall precautions # reactive thrombocytosis # leukocytosis # normocytic anemia, H&H stable # chronic back pain # COPD # possible CKD # osteoarthritis # dyslipidemia: Continue atorvastatin # possible CHF: Echo ordered # cardiomegaly # prior left shoulder fracture status post orthopedic surgery with processes: Ordered blood culture # cholelithiasis: Asymptomatic # left lower lung pulmonary nodule: Incidental finding- outpatient follow-up with low-dose CT scan # possible lymphoma: Needs outpatient Heme-Onc # polysubstance abuse disorder: UDS positive for amphetamine, cannabis- patient counseled on cessation of amphetamine, cannabis for 13 minutes Goals of care addressed with the patient for more than 31 minutes: Full code status Case discussed with Dr. Sales , patient and nurse Plan discussed with: Patient My Orders Orders - SRIRAMA,REGAN RESIDENT Procedure Category Date Status Time Admit ADMIT 10/13/24 Transmitted 22:43 Allergies ANABELA 10/13/24 In Process 22:43 Code Status CODE 10/13/24 Transmitted 22:43 Sodium Chloride 0.9% PHA 10/13/24 In Process 22:45 Ondansetron Hcl PHA 10/13/24 In Process (Zofran) 22:45 Docusate Sodium PHA 10/13/24 In Process Capsule (Colace 22:45 Fall Risk Precautions ANABELA 10/13/[address] 22:43 Complete Blood Count LAB 10/14/24 Logged 04:00 Comprehensive LAB 10/14/24 Logged Metabolic Panel 04:00 Cardiac DIET 10/14/24 Transmitted Diet-2gna,Lofat,Lochol Breakfast Condition: Serious ANABELA 10/13/24 In Process 22:43 Morphine Sulfate PHA 10/13/24 In Process Injection 22:45 Orthostatic Vital ED NURSING 10/13/24 Transmitted Signs Drug Screen LAB 10/14/24 Logged 00:57 Urinalysis LAB 10/14/24 Logged 00:57 Vitamin B12 LAB 10/14/24 Logged 00:57 Date of Service: Oct 14, 2024 Billing Provider: JH SALES MD Common Visit Codes: 01949-[id number] INP/OBS CARE (HIGH) Secondary Visit Codes: 64260-SNSATPGT CARE PLAN 30 MINUTES Additional Comments Additional Comments Additional Comments Patient's chart is reviewed and seen and evaluated. I agree with the resident's evaluation, documentation, assessment and care plan as outlined. REGAN OLIVA Oct 14, 2024 04:22 SUPRIYA PADILLA MD Oct 15, 2024 12:47
[2024-10-14 06:16] LABS: Urine Protein, UAD Negative (Negative)
[2024-10-14 06:32] LABS: Cannabinoid Screen, Urine Pos (NEGATIVE); Opiate Scree,Urine Neg (NEGATIVE)
[2024-10-14 06:33] LABS: Amphetamine Screen, Urine Pos (NEGATIVE); Barbiturate Scree,Urine Neg (NEGATIVE); Benzodiazephine Screen, Urine Neg (NEGATIVE); Cocaine Screen, Urine Neg (NEGATIVE); Phencyclidine Screen, Urine Neg (NEGATIVE)
[2024-10-14 07:44] LABS: Hemoglobin 12.2 g/dL (12.2-16.2); Nucleated Red Blood Cells % 0.1 %
[2024-10-14 07:54] LABS: Hematocrit 36.4 % (36.0-46.0); Mean Corpuscular Hemoglobin 30.8 pg (28.0-32.0); Mean Corpuscular Volume 92.0 fL (80.0-100.0)
[2024-10-14 07:56] LABS: Alanine Aminotransferase 14 U/L (7-40); Alkaline Phosphatase 86 U/L (46-116); Anion Gap 5 (5-15); BUN/Creatinine Ratio 16.3 (10.0-20.0); Blood Urea Nitrogen 15 mg/dL (9-23); Carbon Dioxide 29 mmol/L (20-31); Glucose 88 mg/dL (74-106); Potassium 4.4 mmol/L (3.5-5.1); Sodium 143 mmol/L (136-145); Total Protein 6.8 g/dL (5.7-8.2)
[2024-10-14 07:57] LABS: Albumin 3.4 g/dL (3.2-4.8)
[2024-10-14 08:07] LABS: Bilirubin, Total 0.3 mg/dL (0.2-1.0); Calcium 8.4 mg/dL (8.7-10.4); Chloride 109 mmol/L (98-107)
--- NOTE | 2024-10-14 11:03 | DVH ---
Carotid Duplex Clinical History: Rule out any obstruction Comparison: None Technique: Duplex Doppler evaluation of the extracranial carotid and vertebral arteries including color Doppler and spectral/pulsed waveform analysis was performed. Findings: RIGHT SIDE: The peak systolic velocities are 69 cm/s in the CCA, 84 cm/s in the ICA. The ICA/CCA ratio is 1.2. The external carotid artery is patent with peak systolic velocity of 94 cm/s proximally. There is appropriate antegrade flow in the right vertebral artery. LEFT SIDE: The peak systolic velocities are 81 cm/s in the CCA, 116 cm/s in the ICA. The ICA/CCA ratio is 1.4. The external carotid artery is patent with peak systolic velocity of 95 cm/s proximally. There is appropriate antegrade flow in the left vertebral artery. IMPRESSION: Less than 50% stenosis of bilateral carotid artery systems based on peak systolic velocity criteria a nd presence of atheromatous plaque. Reference: Radiology 2003; 229:[id number] Normal ICA PSV is <125 cm/sec and no plaque or intimal thickening is visible sonographically addition al criteria include ICA/CCA PSV ratio <2.0 and ICA EDV <40 cm/sec <50% ICA stenosis ICA PSV is <125 cm/sec and plaque or intimal thickening is visible sonographically additional criteria include ICA/CCA PSV ratio <2.0 and ICA EDV <40 cm/sec 50-69% ICA stenosis ICA PSV is 125-230 cm/sec and plaque is visible sonographically additional criter ia include ICA/CCA PSV ratio of 2.0-4.0 and ICA EDV of 40-100 cm/sec 70% ICA stenosis but less than near occlusion ICA PSV is >230 cm/sec and visible plaque and luminal narrowing are seen at cortez-scale and color Doppler ultrasound (the higher the Doppler parameters lie above the threshold of 230 cm/sec, the greater the likelihood of severe disease) additional criteria include ICA/CCA PSV ratio >4 and ICA EDV >100 cm/sec
[2024-10-14] MEDS: ATORVASTATIN 20 MG TAB PO ONE (11:12)
[2024-10-14] MEDS: BACLOFEN 10 MG TAB PO SCH (11:13)
[2024-10-14] MEDS: HYDROcodone-ACET 10/325MG TAB PO SCH (14:00)
--- NOTE | 2024-10-14 14:24 | DVHINCON2 ---
Date of service: Oct 14, 2024 History of Present Illness Mila Quiroz is a 62-year-old female presented to the emergency department with chief complaint of syncope. Patient And is a poor historian, and appeared drowsy. Patient reports that she fell from a ladder after feeling dizzy. Patient denies any chest pain, shortness of breath, nausea, vomiting, palpitations during the episode. She did not lose consciousness beta trauma to the head. CT scan showed Scattered small hypodensities in bilateral parietal lobes, nonspecific. May reflect chronic small-vessel ischemic disease versus lac unar infarcts. Patient is admitted for further evaluation and management. Surgical history: Denies Family history: Noncontributory Personal history: Denies smoking, drinking, drug use Lives with: Family PCP: Dr. Valentin Past Medical History reviewed Family History: Patient reports no known family medical history. Allergies: Coded Allergies: Penicillins (Verified Allergy, Mild, 09/02/24) severe nausea Home Meds Active Scripts Cephalexin Monohydrate (Cephalexin) 500 Mg Cap, 500 MG PO QID for 7 Days, #30 CAP Prov:ROXIE FRENCH [employer] INTERN 09/02/24 Reported Medications Baclofen (Baclofen) 10 Mg Tab, 10 MG PO BID for 30 Days, MG 10/14/24 Gabapentin (Once-Daily) (Gabapentin) 300 Mg Tab, 300 MG PO TID, TAB 10/14/24 Hydrocodone-Acetaminophen (Hydrocodone Bitartrate/AC 10-325 mg) 1 Tab Tab, 1 TAB PO TID, TAB 10/14/24 Current Medications Current Medications Medications (Trade) Dose Ordered Sig/Deborah Route PRN Reason Start Time Stop Time Status Last Admin Sodium Chloride 1,000 ml @ 60 mls/hr [id number] IV 10/13/24 22:45 10/14/24 09:30 DC 10/13/24 23:01 Ondansetron HCl (Zofran) 4 mg Q4HP PRN IV NAUSEA / VOMITING 10/13/24 22:45 Docusate Sodium (Colace Capsule) 100 mg BIDPRN PRN PO FOR CONSTIPATION 10/13/24 22:45 Morphine Sulfate 2 mg Q4HPRN PRN IV SEVERE PAIN (7-10 PAIN SCALE) 10/13/24 22:45 10/14/24 11:12 Baclofen (Liorisal Tablet) 10 mg BID PO 10/14/24 10:00 10/14/24 11:13 Acetaminophen/ Hydrocodone Bitart ([place] 10/325MG Tab) 1 tab TID PO 10/14/24 14:00 Ipratropium [place] (Atrovent Medneb) 0.5 mg Q6HWA [facility] 10/14/24 12:00 Albuterol (Ventolin Medneb) 2.5 mg Q6HWA [facility] 10/14/24 12:00 Aspirin 81 mg DAILY PO 10/14/24 10:00 10/14/24 11:13 Review of Systems 10 pt ros otherwise negative Vital Signs Vital Signs Date Time Temp Pulse Resp B/P (MAP) Pulse Ox O2 Delivery O2 Flow Rate FiO2 10/14/24 13:00 97.8 67 18 100/59 (73) 98 97.8 100/59 (73) 105/63 (77) 10/14/24 10:42 5.0 40 10/14/24 08:00 Nasal Cannula* Labs/Diagnostic Data Labs Test 10/14/24 10:48 10/14/24 06:15 10/14/24 05:25 10/14/24 00:46 Range/Units Lactic Acid Level 1.1 0.4-2.0 mmol/L White Blood Count 13.9 H 4.4-10.8 10^3/uL Red Blood Count 3.96 L 4.0-5.20 10^6/uL Hemoglobin 12.2 12.2-16.2 g/dL Hematocrit 36.4 36.0-46.0 % Mean Corpuscular Volume 92.0 80.0-100.0 fL Mean Corpuscular Hemoglobin 30.8 28.0-32.0 pg Mean Corpuscular Hemoglobin Concent 33.5 32.0-36.0 g/dL Red Cell Distribution Width 16.0 H 11.8-14.3 % Platelet Count 721 H 140-450 10^3/uL Mean Platelet Volume 7.4 6.9-10.8 fL Neutrophils (%) (Auto) 34.6 L 37.0-80.0 % Lymphocytes (%) (Auto) 55.3 H 10.0-50.0 % Monocytes (%) (Auto) 6.6 0.0-12.0 % Eosinophils (%) (Auto) 3.1 0.0-7.0 % Basophils (%) (Auto) 0.4 0.0-2.0 % Neutrophils # (Auto) 4.8 1.6-8.6 10 ^3/uL Lymphocytes # (Auto) 7.7 H 0.4-5.4 10 ^3/uL Monocytes # (Auto) 0.9 0-1.3 10 ^3/uL Eosinophils # (Auto) 0.4 0-0.8 10 ^3/uL Basophils # (Auto) 0.1 0-0.2 10 ^3/uL Nucleated Red Blood Cells 0.1 % Sodium Level 143 136-145 mmol/L Potassium Level 4.4 3.5-5.1 mmol/L Chloride Level 109 H 98-107 mmol/L Carbon Dioxide Level 29 20-31 mmol/L Anion Gap 5 5-15 Blood Urea Nitrogen 15 9-23 mg/dL Creatinine 0.92 0.550-1.02 mg/dL Glomerular Filtration Rate Calc 68 >90 mL/min BUN/Creatinine Ratio 16.3 10.0-20.0 Serum Glucose 88 74-106 mg/dL Uric Acid 5.9 3.1-7.8 mg/dL Calcium Level 8.4 L 8.7-10.4 mg/dL Magnesium Level 2.2 1.6-2.6 mg/dL Total Bilirubin 0.3 0.2-1.0 mg/dL Aspartate Amino Transferase (AST) 21 13-40 U/L Alanine Aminotransferase (ALT) 14 7-40 U/L Alkaline Phosphatase 86 46-116 U/L Total Protein 6.8 5.7-8.2 g/dL Albumin 3.4 3.2-4.8 g/dL Vitamin B12 Level 332 211-911 pg/mL Urine Color Yellow Yellow Urine Clarity Clear Clear Urine pH 5.5 5.0-9.0 Urine Specific [place] 1.027 1.001-1.035 Urine Protein Negative Negative Urine Ketones Negative Negative Urine Blood Negative Negative /uL Urine Nitrite Negative Negative Urine Bilirubin Negative Negative Urine Urobilinogen Normal Negative mg/dL Urine Leukocyte Esterase Negative Negative /uL Urine RBC None seen 0 - 4 /hpf Urine Microscopic WBC 1 0-5 /HPF Urine Squamous Epithelial Cells Few <5 /hpf Urine Bacteria None seen None Seen /hpf Urine Hyaline Casts Few 0 - 2 /lpf Urine Mucus Few None Seen Urine Glucose Normal Normal mg/dL Urine Opiates Screen Neg NEGATIVE Urine Fentanyl Screen Neg NEGATIVE Urine Barbiturates Screen Neg NEGATIVE Urine Phencyclidine Screen Neg NEGATIVE Urine Amphetamines Screen Pos NEGATIVE Urine Benzodiazepines Screen Neg NEGATIVE Urine Cocaine Screen Neg NEGATIVE Urine Cannabinoids Screen Pos NEGATIVE Influenza Type A Antigen Negative Negative Influenza Type B Antigen Negative Negative SARS-CoV-2 Antigen (Rapid) Negative NEGATIVE Test 10/13/24 23:52 10/13/24 18:07 10/13/24 16:50 Range/Units Prothrombin Time 11.0 9.3-11.8 sec Prothrombin Time INR 1.04 0.9-1.15 Phosphorus Level 3.7 2.4-5.1 mg/dL Direct Bilirubin < 0.1 <0.3 mg/dL Troponin I High Sensitivity < 3 L </=34 ng/L B-Type Natriuretic Peptide 26.70 0-100 pg/mL Thyroid Stimulating Hormone (TSH) 0.67 0.55-4.78 uIU/mL Assessment non responsiveness r/ o syncope meth abuse thc abuse abd mass workup preop cv clearance Plan/Recommendation pt wasnt responding properly in our office needed sternal rub +drugs meth, thc IVF on 5L o2, pulm congestion noted, prn diuretics check echo for lvef Plan discussed with: Patient MARJ TORO MD Oct 14, 2024 14:24
[2024-10-14] MEDS: OMNIPAQUE 12mg/ml 500ml ORAL SOLUTION PO ONE (16:27)
[2024-10-14] MEDS: IOHEXOL 300 MG/ML 100ML BOTTLE IJ ONE (18:19)
[2024-10-14] MEDS: ALBUTEROL SULF 2.5 MG/0.5ML(0.5%) NEB SOLN NEB SCH (19:25)
[2024-10-14] MEDS: IPRATROPIUM BROM 0.5 MG/2.5ML INH SOL NEB SCH (19:25)
--- NOTE | 2024-10-14 21:28 | DVH ---
Exam: CT CT ABD PELVIS W CON-ORAL IV History: abdominal pain COMPARISON: CT ABDOMEN PELVIS WITHOUT on DOS: 09/04/24, CT CT AB PEL WITH IV CON ONLY on DOS: 09/02/24, CT ABD PELVIS WO/W on DOS: 08/30/24, CT ABDOMEN PELVIS WITH on DOS: 06/22/24, US PELVIS (NON OB) on DO S: 05/04/21 Technique: Multidetector spiral CT of the abdomen and pelvis was performed from lung bases to pubic s ymphysis. Intravenous contrast was administered during this examination. Portal venous imaging was obtained. Axial, coronal and sagittal multiplanar reformats were performed by the technologist on a separate workstation. Radiation Dose : 1. Abdomen/Pelvis: CTDIvol 7.09mGy, DLP 3.92 mGy*cm. Findings: Lung Bases: Subsegmental atelectasis in the lung bases. Normal heart size. No pleural or pericardial effusion. Liver: The liver is enlarged. No focal lesions. Normal hepatic vascular enhancement. Gallbladder and Biliary Tree: Gallbladder calculi collectively measuring 1.7 cm. Mild extrahepatic bi liary ductal dilation. Spleen: Unremarkable Pancreas: The pancreas is normal in appearance without focal lesions or abnormal enhancement. Pancrea tic duct is dilated and measures 0.5 cm. Adrenal Glands: Unremarkable Kidneys: No hydronephrosis. Bladder: Unremarkable Bowel: The stomach is grossly normal in appearance. Small bowel and colon are normal in caliber and d istribution. The appendix is not visualized; however, no secondary findings of acute appendicitis id entified. Ascites: Absent Lymphadenopathy: Bilateral inguinal , pelvic sidewall and retroperitoneal lymphadenopathy, measuring up to 2 cm in short axis. Abdominal Wall and Mesentery: Unremarkable. Vasculature: The visualized abdominal aorta is normal in size and caliber. Abdominal and pelvic vess els demonstrate normal enhancement. Pelvic Organs: Unremarkable Musculoskeletal: No aggressive focal bony lesions, acute fractures or dislocation. Bilateral total hi p arthroplasties. IMPRESSION: 1. Hepatomegaly, clinical correlation is needed for evaluation of acute steatohepatitis 2. Mild pancreatic ductal dilation and extrahepatic biliary ductal dilation. No filling defect in th e distal biliary duct. No definite mass in the head of pancreas. Clinical correlation and follow-up w ith MR is suggested. Radiation optimization: All CT scans at this facility use at least one of these dose optimization hillary hniques: automated exposure control mA and/or kV adjustment per patient size (includes targeted exam s where dose is matched to clinical indication) or iterative reconstruction.
[2024-10-15] VITALS (8 sets, daily range): BP systolic 104–116; BP diastolic 52–66; PULSE 49–78; RESP 17–19; TEMP 36.4; O2SAT 65–100
[2024-10-15] MEDS ORDERED: ALBUTEROL SULF 2.5 MG/0.5ML(0.5%) NEB SOLN NEB PRN (01:00)
[2024-10-15] MEDS ORDERED: IPRATROPIUM BROM 0.5 MG/2.5ML INH SOL NEB PRN (01:00)
[2024-10-15 06:18] LABS: Hemoglobin 12.0 g/dL (12.2-16.2); Nucleated Red Blood Cells % 0.1 %
[2024-10-15 06:20] LABS: Hematocrit 35.6 % (36.0-46.0); Mean Corpuscular Hemoglobin 30.8 pg (28.0-32.0); Mean Corpuscular Volume 90.9 fL (80.0-100.0)
[2024-10-15 06:23] LABS: Potassium 4.3 mmol/L (3.5-5.1); Sodium 141 mmol/L (136-145)
[2024-10-15 06:24] LABS: Anion Gap 5 (5-15); Carbon Dioxide 27 mmol/L (20-31)
[2024-10-15 06:29] LABS: BUN/Creatinine Ratio 13.6 (10.0-20.0); Blood Urea Nitrogen 11 mg/dL (9-23); Glucose 85 mg/dL (74-106)
[2024-10-15 06:41] LABS: Chloride 109 mmol/L (98-107)
[2024-10-15 06:42] LABS: Calcium 8.5 mg/dL (8.7-10.4)
[2024-10-15] MEDS ORDERED: ASPI-316 PO (11:25)
--- NOTE | 2024-10-15 11:27 | DVHDS2 ---
Discharge Summary Date of Admission Oct 13, 2024 at 22:43 Date of Discharge: Oct 15, 2024 Labs/Diagnostic Data: Laboratory Results Test 10/15/24 05:35 10/14/24 10:48 10/14/24 06:15 10/14/24 05:25 White Blood Count 13.0 10^3/uL (4.4-10.8) Red Blood Count 3.91 10^6/uL (4.0-5.20) Hemoglobin 12.0 g/dL (12.2-16.2) Hematocrit 35.6 % (36.0-46.0) Mean Corpuscular Volume 90.9 fL (80.0-100.0) Mean Corpuscular Hemoglobin 30.8 pg (28.0-32.0) Mean Corpuscular Hemoglobin Concent 33.8 g/dL (32.0-36.0) Red Cell Distribution Width 15.5 % (11.8-14.3) Platelet Count 742 10^3/uL (140-450) Mean Platelet Volume 7.4 fL (6.9-10.8) Neutrophils (%) (Auto) 28.8 % (37.0-80.0) Lymphocytes (%) (Auto) 57.9 % (10.0-50.0) Monocytes (%) (Auto) 8.6 % (0.0-12.0) Eosinophils (%) (Auto) 4.1 % (0.0-7.0) Basophils (%) (Auto) 0.6 % (0.0-2.0) Neutrophils # (Auto) 3.7 10 ^3/uL (1.6-8.6) Lymphocytes # (Auto) 7.5 10 ^3/uL (0.4-5.4) Monocytes # (Auto) 1.1 10 ^3/uL (0-1.3) Eosinophils # (Auto) 0.5 10 ^3/uL (0-0.8) Basophils # (Auto) 0.1 10 ^3/uL (0-0.2) Nucleated Red Blood Cells 0.1 % Sodium Level 141 mmol/L (136-145) Potassium Level 4.3 mmol/L (3.5-5.1) Chloride Level 109 mmol/L (98-107) Carbon Dioxide Level 27 mmol/L (20-31) Anion Gap 5 (5-15) Blood Urea Nitrogen 11 mg/dL (9-23) Creatinine 0.81 mg/dL (0.550-1.02) Glomerular Filtration Rate Calc 79 mL/min (>90) BUN/Creatinine Ratio 13.6 (10.0-20.0) Serum Glucose 85 mg/dL (74-106) Calcium Level 8.5 mg/dL (8.7-10.4) Lactic Acid Level 1.1 mmol/L (0.4-2.0) Uric Acid 5.9 mg/dL (3.1-7.8) Magnesium Level 2.2 mg/dL (1.6-2.6) Total Bilirubin 0.3 mg/dL (0.2-1.0) Aspartate Amino Transferase (AST) 21 U/L (13-40) Alanine Aminotransferase (ALT) 14 U/L (7-40) Alkaline Phosphatase 86 U/L (46-116) Total Protein 6.8 g/dL (5.7-8.2) Albumin 3.4 g/dL (3.2-4.8) Vitamin B12 Level 332 pg/mL (211-911) Urine Color Yellow (Yellow) Urine Clarity Clear (Clear) Urine pH 5.5 (5.0-9.0) Urine Specific [place] 1.027 (1.001-1.035) Urine Protein Negative (Negative) Urine Ketones Negative (Negative) Urine Blood Negative /uL (Negative) Urine Nitrite Negative (Negative) Urine Bilirubin Negative (Negative) Urine Urobilinogen Normal mg/dL (Negative) Urine Leukocyte Esterase Negative /uL (Negative) Urine RBC None seen /hpf (0 - 4) Urine Microscopic WBC 1 /HPF (0-5) Urine Squamous Epithelial Cells Few /hpf (<5) Urine Bacteria None seen /hpf (None Seen) Urine Hyaline Casts Few /lpf (0 - 2) Urine Mucus Few (None Seen) Urine Glucose Normal mg/dL (Normal) Urine Opiates Screen Neg (NEGATIVE) Urine Fentanyl Screen Neg (NEGATIVE) Urine Barbiturates Screen Neg (NEGATIVE) Urine Phencyclidine Screen Neg (NEGATIVE) Urine Amphetamines Screen Pos (NEGATIVE) Urine Benzodiazepines Screen Neg (NEGATIVE) Urine Cocaine Screen Neg (NEGATIVE) Urine Cannabinoids Screen Pos (NEGATIVE) Test 10/14/24 00:46 10/13/24 23:52 10/13/24 18:07 10/13/24 16:50 Influenza Type A Antigen Negative (Negative) Influenza Type B Antigen Negative (Negative) SARS-CoV-2 Antigen (Rapid) Negative (NEGATIVE) Prothrombin Time 11.0 sec (9.3-11.8) Prothrombin Time INR 1.04 (0.9-1.15) Phosphorus Level 3.7 mg/dL (2.4-5.1) Direct Bilirubin < 0.1 mg/dL (<0.3) Troponin I High Sensitivity < 3 ng/L (</=34) B-Type Natriuretic Peptide 26.70 pg/mL (0-100) Thyroid Stimulating Hormone (TSH) 0.67 uIU/mL (0.55-4.78) Other Laboratory Tests 10/15/24 05:35 Brief Hx & Hospital Course: Mila Quiroz is a 62-year-old female presented to the emergency department with chief complaint of syncope. Patient And is a poor historian, and appeared drowsy. Patient reports that she fell from a ladder after feeling dizzy. Patient denies any chest pain, shortness of breath, nausea, vomiting, palpitations during the episode. She did not lose consciousness beta trauma to the head. CT scan showed Scattered small hypodensities in bilateral parietal lobes, nonspecific. May reflect chronic small-vessel ischemic disease versus lacunar infarcts. Patient is admitted for further evaluation and management. 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 Her symptoms felt secondary to methamphetamine and THC drug use disorder. Patient cardiac-zuniga remained stable without any acute issues in the hospital. Patient counseled educated regarding her drug use and advised to seek help with rehab programs. Meantime patient also had a CT of the abdomen pelvis with IV contrast done due to her nonspecific pain and essentially came back normal. Results of the CT scan as well as head CT results discussed with the patient. Patient is advised to keep her bowels soft and regular. Otherwise continue her pain medications through her pain management physician. She is advised to have a close follow up with her primary care physician. While in the hospital given her workup is normal and she is feeling better back to normal baseline status it is felt she could be safely discharged home with close outpatient follow up with her primary care physician and drive in waiter/waitress to further evaluate and manage her symptoms as deemed appropriate. Patient verbalized understanding over hospital diagnosis, treatment she received, imaging results, discharge medications, discharge instructions and agree with the follow up plan of care as outlined. Consults/Reason for consult Assessment non responsiveness r/ o syncope meth abuse thc abuse abd mass workup preop cv clearance Plan/Recommendation pt wasnt responding properly in our office needed sternal rub +drugs meth, thc IVF on 5L o2, pulm congestion noted, prn diuretics check echo for lvef Plan discussed with: Patient MARJ TORO Oct 14, 2024 14:24 Condition at Discharge: Stable Final Diagnosis/Problems List near syncope, THC/Meth use disorder Discharge Disposition: Home Discharge Instruct/Medications Diet: Consistent carbohydrate, Cardiac 2g Na,low cholest Activity: No Restrictions, As Tolerated Follow Up/Referral: your primay care after 2 weeks and any new or recurrent problems Medications: as prescribed and home medications Scheduled Aspirin (Aspirin EC Adult Low Dose), 81 MG PO [email or web address] Baclofen (Baclofen), 10 MG PO BID, (Reported) Cephalexin Monohydrate (Cephalexin), 500 MG PO QID Gabapentin (Once-Daily) (Gabapentin), 300 MG PO TID, (Reported) Hydrocodone-Acetaminophen (Hydrocodone Bitartrate/AC 10-325 mg), 1 TAB PO TID, (Reported) Discharge Statement: "Patient was advised to return to the ER or call 911 if any headaches, dizziness, shortness of breath, chest pain, abdominal pain, bleeding, fevers, or worsening of medical condition. Patient was counseled about treatment plan, medications, possible side effects, patientverbalized understanding. All questions were answered to the best of my ability. This discharge took greater then 30 minutes in planning, reviewing documentation, counseling the patient, and discussing with other team members." ASSESSMENT ASSESSMENT Assessment near syncope, THC/Meth use disorder SUPRIYA PADILLA MD Oct 15, 2024 11:27
== END 2024-10-15 13:20 | disposition home or self-care (01) | DRG 91 ==
LOC: EDBD 16:10 → ER 16:10 → OVERFLOW 22:43 → TELE-EAST 23:52
PROVIDERS: ATTEND Emergency Medicine
DX: G92.8 Other toxic encephalopathy (principal); J96.01 Acute respiratory failure with hypoxia; R55 Syncope and collapse; I99.8 Other disorder of circulatory system; D75.838 Other thrombocytosis; J44.9 Chronic obstructive pulmonary disease, unspecified; K80.20 Calculus of gallbladder without cholecystitis without obstruction; R91.1 Solitary pulmonary nodule; F12.10 Cannabis abuse, uncomplicated; F15.10 Other stimulant abuse, uncomplicated; Z20.822 Contact with and (suspected) exposure to COVID-19; D72.829 Elevated white blood cell count, unspecified; D64.9 Anemia, unspecified; G89.29 Other chronic pain; E78.5 Hyperlipidemia, unspecified; I51.7 Cardiomegaly; R19.00 Intra-abdominal and pelvic swelling, mass and lump, unspecified site; Z88.0 Allergy status to penicillin; Z79.891 Long term (current) use of opiate analgesic
CPT/HCPCS: 36415; 70450; 71045; 74177; 80048; 80053; 80076; 80307; 81001; 82607; 83605; 83735; 83880; 84100; 84443; 84484; 84550; 85025; 85610; 87040; 87081; 87426; 87804; 93005; 93886; 94640; 96360; 97110; 97116; 97163; 97530; G0378